=== PATIENT | female | born 1950 | race Caucasian/White ===

== ENCOUNTER → 2018-01-14 | Outpatient (CLI) | payer OTHER ==
[~2018-01-14] MED LIST: ACET325 PO; ACET500 PO; ALBU.083IS IH; ALBU2.5V5 INH; ALBU8HFA2 INH; ALBU90OI INH; ALBU90OI6; ALBU90OI61 INH; AMLO5 PO; ASPI81CH PO; ASPI81EC; ASPI81EC PO; AZIT250 PO; AZIT500 PO; BREWERS YEAST; CALCIUM; CALMAGZIN PO; CELE200 PO; CHOL10002 PO; CIPR500 PO; Cipro250 MG PO; DEEP SEA44 ML; DILT120 PO; DIPH12.5EL PO; DOCU100 PO; DULO30 PO; EPIN.3I IM; FAMO20 PO; FEXO180 PO; FLAX; FLAXSEED1000 MG PO; FLUSAL2505 IH; FLUT1DIS5 INH; FURO40 PO; Flagyl500 MG PO; GUAI600T33 PO; HYDACE5 PO; HYDR1TAB94 PO; Hair, Skin & N1 EACH PO; IBUP600 PO; IBUP800 PO; IRON150C PO; K-TAB ER20 MEQ PO; LEVA.63IS IH; LEVO750 PO; LISHYD1012 PO; LISHYD2025 PO; LISI5 PO; Lopressor 25 mg25 MG PO; Lyrica50 MG PO; METAMUCIL POWD174 GM PO; METO25 PO; METO50 PO; METR500 PO; MOMENI; MONT10T PO; MULVITB PO; MULVITMINF PO; Metamucil Smooth1 EA PO; NAPR500 PO; NIAC250ER PO; NIAC500 PO; Norco 5-325 Ta1 EACH PO; ONDA4ODT MM; POLY500 PO; POTA10T PO; PRED10 PO; PRED20 PO; PREG50 PO; PRESERVISION A1 EACH PO; PROBIOTIC COLON PO; PROM25 PO; RED YEAST RICE; RED YEAST RICE PO; SENN187 PO; SODCHL.65S; SUPER B-COMPL400 MCG PO; TRAM50 PO; TRAN4; Ultram50 MG PO; VIT1CAPS12 PO; Valtrex1000 MG PO; Ventolin5 MG/1 ML INH; Voltaren100 GM TOP; YEAST PO
[2018-01-14 11:47] LABS: Free Thyroxine 0.98 ng/dL (0.70-1.60); Thyroid Stimulating Hormone 2.81 uIU/mL (0.360-4.800); Triiodothyronine, Free 2.86 pg/mL (2.18-3.98)
== END ==
LOC: LAB 10:51
PROVIDERS: Internal Medicine
DX: M79.7 Fibromyalgia (principal); R63.5 Abnormal weight gain; E66.9 Obesity, unspecified; I10 Essential (primary) hypertension
CPT/HCPCS: 84439; 84443; 84481

== ENCOUNTER 2018-02-10 23:43 | Inpatient (IN) | payer OTHER ==
[~2018-02-10] VITALS: Ht 10.2 cm; Wt 101.5 kg
[~2018-02-10 23:43] MED LIST changes: -ACET325 PO; -ALBU90OI INH; -AZIT500 PO; -DEEP SEA44 ML; -FLAXSEED1000 MG PO; -IBUP600 PO; -Lopressor 25 mg25 MG PO; -Lyrica50 MG PO; -METAMUCIL POWD174 GM PO; -MONT10T PO; -PRED10 PO; -PREG50 PO; -PRESERVISION A1 EACH PO; -Ventolin5 MG/1 ML INH; -Voltaren100 GM TOP
[2018-02-11 01:14] LABS: BASOPHILS ABSOLUTE AUTO 0.04 K/mm3 (0.00-0.23); BASOPHILS PERCENT AUTO 1 % (0-2); EOSINOPHILS ABSOLUTE AUTO 0.32 K/mm3 (0.00-0.68); EOSINOPHILS PERCENT AUTO 5 % (0-6); Hematocrit 39.2 % (33.0-51.0); Hemoglobin 12.7 g/dL (11.5-16.0); IMMATURE GRAN ABSOLUTE AUTO 0.01 K/mm3 (0.00-0.10); IMMATURE GRAN PERCENT AUTO 0 % (0-1); LYMPHOCYTES ABSOLUTE AUTO 1.17 K/mm3 (0.84-5.20); LYMPHOCYTES PERCENT AUTO 17 % (21-46); MONOCYTES ABSOLUTE AUTO 0.69 K/mm3 (0.16-1.47); MONOCYTES PERCENT AUTO 10 % (4-13); Mean Corpuscular HGB 30.6 pg (26.0-34.0); Mean Corpuscular HGB Conc 32.4 g/dL (31.5-36.5); Mean Corpuscular Volume 95 fL (80-100); Mean Platelet Volume 10.7 fL (9.1-12.4); NEUTROPHILS ABSOLUTE AUTO 4.78 K/mm3 (1.96-9.15); NEUTROPHILS PERCENT AUTO 68 % (41-73); Platelet Count 313 K/mm3 (150-400); RDW Coefficient Variation 12.2 % (11.7-14.2); RDW Standard Deviation 42.5 fL (35.1-46.3); Red Blood Cell Count 4.15 M/mm3 (3.80-5.20); White Blood Cell Count 7.01 K/mm3 (4.00-11.30)
[2018-02-11 01:25] LABS: Alanine Aminotransfer (ALT/SGP 24 U/L (12-78); Albumin, Blood 3.6 g/dL (3.4-5.0); Albumin/Globulin Ratio 0.8 (0.8-1.8); Alk Phos 126 U/L (50-136); Anion Gap 9 mmol/L (6-16); Aspartate Aminotrans (AST/SGOT 17 U/L (12-37); Bilirubin, Total 0.4 mg/dL (0.1-1.0); Blood Urea Nitrogen 17 mg/dL (8-24); Bun/Creatinine Ratio 21.5 (12.0-20.0); CO2, Blood 25 mmol/L (21-32); Calcium, Blood 9.3 mg/dL (8.5-10.1); Chloride, Blood 103 mmol/L (98-108); Creatinine, Blood 0.79 mg/dL (0.40-1.00); Globulin, Blood 4.8 g/dL (2.2-4.0); Glomerular Filtration Rate >60 (60-); Glucose, Blood 87 mg/dL (70-99); Potassium, Blood 4.3 mmol/L (3.5-5.5); Sodium, Blood 137 mmol/L (136-145); Total Protein, Blood 8.4 g/dL (6.4-8.2)
[2018-02-11 02:07] LABS: Troponin I <0.015 ng/mL (0.000-0.040)
[2018-02-11 03:11] LABS: PCO2 Arterial 34 mmHg (35-45); PO2 Arterial 62.3 mmHg (80-100); pH Blood Arterial 7.46 (7.35-7.45)
[2018-02-11] MEDS ORDERED: Lyrica50 MG PO (04:06)
[2018-02-11] MEDS ORDERED: IBUP600 PO (04:14)
[2018-02-11] MEDS ORDERED: PRESERVISION A1 EACH PO (04:19)
[2018-02-11] MEDS ORDERED: AMLO5 PO ×2 (04:20→20:04)
[2018-02-11] MEDS ORDERED: PREG50 PO (17:53)
[2018-02-12 05:43] LABS: BASOPHILS ABSOLUTE AUTO 0.01 K/mm3 (0.00-0.23); BASOPHILS PERCENT AUTO 0 % (0-2); EOSINOPHILS PERCENT AUTO 0 % (0-6); Hematocrit 35.2 % (33.0-51.0); Hemoglobin 11.7 g/dL (11.5-16.0); IMMATURE GRAN ABSOLUTE AUTO 0.05 K/mm3 (0.00-0.10); IMMATURE GRAN PERCENT AUTO 1 % (0-1); LYMPHOCYTES ABSOLUTE AUTO 0.83 K/mm3 (0.84-5.20); LYMPHOCYTES PERCENT AUTO 9 % (21-46); MONOCYTES ABSOLUTE AUTO 0.25 K/mm3 (0.16-1.47); MONOCYTES PERCENT AUTO 3 % (4-13); Mean Corpuscular HGB 30.3 pg (26.0-34.0); Mean Corpuscular HGB Conc 33.2 g/dL (31.5-36.5); Mean Corpuscular Volume 91 fL (80-100); Mean Platelet Volume 11.1 fL (9.1-12.4); NEUTROPHILS ABSOLUTE AUTO 7.67 K/mm3 (1.96-9.15); NEUTROPHILS PERCENT AUTO 87 % (41-73); Platelet Count 256 K/mm3 (150-400); RDW Coefficient Variation 11.9 % (11.7-14.2); RDW Standard Deviation 39.5 fL (35.1-46.3); Red Blood Cell Count 3.86 M/mm3 (3.80-5.20); White Blood Cell Count 8.81 K/mm3 (4.00-11.30)
[2018-02-12 06:33] LABS: Anion Gap 12 mmol/L (6-16); Blood Urea Nitrogen 22 mg/dL (8-24); Bun/Creatinine Ratio 31.7 (12.0-20.0); CO2, Blood 20 mmol/L (21-32); Chloride, Blood 107 mmol/L (98-108); Glomerular Filtration Rate >60 (60-); Glucose, Blood 175 mg/dL (70-99); Potassium, Blood 4.2 mmol/L (3.5-5.5); Sodium, Blood 139 mmol/L (136-145)
[2018-02-12] MEDS ORDERED: DULO30 PO (13:19)
[2018-02-12] MEDS ORDERED: PRED10 PO (13:20)
[2018-02-12] MEDS ORDERED: AZIT500 PO (13:21)
[2018-02-12] MEDS ORDERED: DEEP SEA44 ML (13:22)
[2018-03-23] MEDS ORDERED: AMLO5 PO (15:59)
[2018-03-23] MEDS ORDERED: Lopressor 25 mg25 MG PO (16:00)
[2018-03-23] MEDS ORDERED: FURO40 PO (16:27)
[2018-03-23] MEDS ORDERED: K-TAB ER20 MEQ PO (16:32)
[2018-03-23] MEDS ORDERED: FLUT1DIS5 INH (16:33)
[2018-03-23] MEDS ORDERED: TRAM50 PO (16:33)
[2018-03-23] MEDS ORDERED: Ventolin5 MG/1 ML INH (16:34)
[2018-03-23] MEDS ORDERED: ALBU90OI INH (16:35)
[2018-03-23] MEDS ORDERED: Voltaren100 GM TOP (16:36)
[2018-03-23] MEDS ORDERED: DIPH12.5EL PO (16:37)
[2018-03-23] MEDS ORDERED: ACET325 PO (16:38)
[2018-03-23] MEDS ORDERED: METAMUCIL POWD174 GM PO (16:39)
[2018-03-23] MEDS ORDERED: IBUP600 PO (16:47)
[2018-03-23] MEDS ORDERED: PREG50 PO (16:48)
[2018-03-23] MEDS ORDERED: MONT10T PO (16:48)
[2018-03-23] MEDS ORDERED: FLAXSEED1000 MG PO (16:49)
== END 2018-02-12 15:05 | disposition home or self-care (01) | DRG 189 ==
LOC: ER 23:43 → MEDS 23:44
PROVIDERS: Emergency Medicine; Family Medicine
DX: J96.01 Acute respiratory failure with hypoxia (principal); J44.1 Chronic obstructive pulmonary disease with (acute) exacerbation; Z95.2 Presence of prosthetic heart valve; G89.29 Other chronic pain; I10 Essential (primary) hypertension; I49.3 Ventricular premature depolarization; Z88.8 Allergy status to other drugs, medicaments and biological substances; Z88.5 Allergy status to narcotic agent; Z91.013 Allergy to seafood; Z91.018 Allergy to other foods; Z79.82 Long term (current) use of aspirin; Z79.899 Other long term (current) drug therapy; Z87.891 Personal history of nicotine dependence
CPT/HCPCS: 36415; 36600; 71046; 80048; 80053; 82803; 83690; 84484; 85025; 93005; 93010; 94640; 94760; 96372; 96374; 96376; 99285; G0378; J0456; J1650; J2930; J7050

== ENCOUNTER 2018-03-27 05:54 | Day surgery (SDC) | payer OTHER ==
[~2018-03-27] VITALS: Ht 160 cm; Wt 102.1 kg
[~2018-03-27 05:54] MED LIST changes: +ACET325 PO; +ALBU90OI INH; +AZIT500 PO; +DEEP SEA44 ML; +FLAXSEED1000 MG PO; +IBUP600 PO; +Lopressor 25 mg25 MG PO; +Lyrica50 MG PO; +METAMUCIL POWD174 GM PO; +MONT10T PO; +PRED10 PO; +PREG50 PO; +PRESERVISION A1 EACH PO; +Ventolin5 MG/1 ML INH; +Voltaren100 GM TOP
== END 2018-03-27 22:56 | disposition home or self-care (01) ==
LOC: ORSCMMR 05:54 → ORD 07:30 → ORSCMMR 07:30
PROVIDERS: Surgery
PROC: 0WUF0JZ Supplement Abdominal Wall with Synthetic Substitute, Open Approach (ICD-10-PCS; principal; 2018-03-27 07:30)
DX: K43.0 Incisional hernia with obstruction, without gangrene (principal); I10 Essential (primary) hypertension; J44.9 Chronic obstructive pulmonary disease, unspecified; G47.33 Obstructive sleep apnea (adult) (pediatric); E66.01 Morbid (severe) obesity due to excess calories; Z68.41 Body mass index [BMI] 40.0-44.9, adult; Z79.899 Other long term (current) drug therapy
CPT/HCPCS: C1781; J0690; J1100; J2250; J2370; J2405; J2710; J2765; J3010; J7120

== ENCOUNTER → 2019-05-14 | Outpatient (CLI) | payer OTHER ==
[2019-05-14 10:56] LABS: Blood, Urine 1+ (Neg); Glucose Qualitative, Urine Neg (Neg); Ketones, Urine Neg (Neg); Leukocyte Esterase, Urine Neg (Neg); Nitrite, Urine Pos (Neg); Protein, Urine 3+ (Neg); Specific Gravity, Urine 1.015 (1.003-1.022); Urobilinogen, Urine 3+ (Normal); pH, Urine 6.5 (5.0-8.0)
[2019-05-14 11:17] LABS: Bilirubin, Urine 3+ (Neg); Color, Urine Amber (P-Yellow)
[2019-05-14 11:19] LABS: Amorphous Heavy (0-Heavy); Appearance, Urine Cloudy (Clear); Bacteria Rare /hpf; Red Blood Cells, Urine 0-2 /hpf (0-2); Squamous Epithelial Cells Mod /hpf (Few); White Blood Cells, Urine 0-2 /hpf (0-5)
== END | disposition home or self-care (01) ==
LOC: LAB SHORT 09:49 → LAB 09:49
DX: R30.0 Dysuria (principal)
CPT/HCPCS: 81001; 87086

== ENCOUNTER 2019-11-03 20:30 | Emergency (ER) | payer OTHER ==
[~2019-11-03] VITALS: Ht 160 cm; Wt 85.3 kg
[2019-11-03 21:30] LABS: BASOPHILS ABSOLUTE AUTO 0.05 K/mm3 (0.00-0.23); BASOPHILS PERCENT AUTO 1 % (0-2); EOSINOPHILS ABSOLUTE AUTO 0.01 K/mm3 (0.00-0.68); EOSINOPHILS PERCENT AUTO 0 % (0-6); Hematocrit 46.7 % (33.0-51.0); Hemoglobin 15.7 g/dL (11.5-16.0); IMMATURE GRAN ABSOLUTE AUTO 0.03 K/mm3 (0.00-0.10); IMMATURE GRAN PERCENT AUTO 0 % (0-1); LYMPHOCYTES ABSOLUTE AUTO 1.24 K/mm3 (0.84-5.20); LYMPHOCYTES PERCENT AUTO 12 % (21-46); MONOCYTES PERCENT AUTO 3 % (4-13); Mean Corpuscular HGB 31.7 pg (26.0-34.0); Mean Corpuscular HGB Conc 33.6 g/dL (31.5-36.5); Mean Corpuscular Volume 94 fL (80-100); Mean Platelet Volume 10.7 fL (9.1-12.4); NEUTROPHILS ABSOLUTE AUTO 9.12 K/mm3 (1.96-9.15); NEUTROPHILS PERCENT AUTO 85 % (41-73); Platelet Count 298 K/mm3 (150-400); RDW Coefficient Variation 12.8 % (11.7-14.2); RDW Standard Deviation 44.5 fL (35.1-46.3); Red Blood Cell Count 4.96 M/mm3 (3.80-5.20); White Blood Cell Count 10.75 K/mm3 (4.00-11.30)
[2019-11-03 22:36] LABS: Alanine Aminotransfer (ALT/SGP 20 U/L (12-78); Albumin, Blood 3.4 g/dL (3.4-5.0); Albumin/Globulin Ratio 0.9 (0.8-1.8); Alk Phos 112 U/L (50-136); Anion Gap 8 mmol/L (6-16); Aspartate Aminotrans (AST/SGOT 14 U/L (12-37); Bilirubin, Total 0.5 mg/dL (0.1-1.0); Blood Urea Nitrogen 20 mg/dL (8-24); Bun/Creatinine Ratio 29.6 (12.0-20.0); CO2, Blood 28 mmol/L (21-32); Calcium, Blood 8.9 mg/dL (8.5-10.1); Chloride, Blood 104 mmol/L (98-108); Creatinine, Blood 0.68 mg/dL (0.40-1.00); Globulin, Blood 3.7 g/dL (2.2-4.0); Glomerular Filtration Rate >60 (60-); Glucose, Blood 124 mg/dL (70-99); Sodium, Blood 140 mmol/L (136-145); Total Protein, Blood 7.1 g/dL (6.4-8.2)
[2019-11-03 23:04] LABS: Bilirubin, Urine Neg (Neg); Blood, Urine Neg (Neg); Glucose Qualitative, Urine Neg (Neg); Leukocyte Esterase, Urine 1+ (Neg); Nitrite, Urine Neg (Neg); Protein, Urine 1+ (Neg); Urobilinogen, Urine NORM (Normal)
[2019-11-03 23:15] LABS: Ketones, Urine 2+ (Neg)
[2019-11-03 23:18] LABS: Appearance, Urine Hazy (Clear); Color, Urine Yellow (P-Yellow)
[2019-11-03 23:20] LABS: Bacteria Mod /hpf; Mucus Mod (0-Heavy); Red Blood Cells, Urine Not Seen /hpf (0-2); Squamous Epithelial Cells Few /hpf (Few)
[2019-11-03] MEDS ORDERED: ONDA4ODT SL (23:45)
== END 2019-11-04 00:12 | disposition home or self-care (01) ==
LOC: ER 20:30
PROVIDERS: Emergency Medicine
DX: R10.32 Left lower quadrant pain (principal); R51 Headache; R11.2 Nausea with vomiting, unspecified; R19.7 Diarrhea, unspecified; J44.9 Chronic obstructive pulmonary disease, unspecified; I10 Essential (primary) hypertension; Z91.013 Allergy to seafood; Z88.8 Allergy status to other drugs, medicaments and biological substances; Z88.5 Allergy status to narcotic agent; Z91.09 Other allergy status, other than to drugs and biological substances; Z91.048 Other nonmedicinal substance allergy status; Z91.018 Allergy to other foods; Z79.899 Other long term (current) drug therapy; Z79.51 Long term (current) use of inhaled steroids; Z87.891 Personal history of nicotine dependence
CPT/HCPCS: 36415; 80053; 81001; 83690; 85025; 87086; 96361; 96374; 99284-25; A9270-GY; J2405; J7120

== ENCOUNTER → 2021-11-14 | Outpatient (CLI) | payer OTHER ==
[~2021-11-14] MED LIST changes: +Aspir 8181 MG PO; +B-100 COMPLEX100 MG PO; +CALCIUM 500 MG1 EAC2 PO; +MELATONIN5 M1 PO; +ONDA4ODT SL
[2021-11-14 17:12] LABS: Source, Urine Clean Catch
[2021-11-14 19:49] LABS: Appearance, Urine Clear (Clear); Bilirubin, Urine Neg (Neg); Blood, Urine Neg (Neg); Color, Urine Yellow (P-Yellow); Glucose Qualitative, Urine Neg (Neg); Ketones, Urine Neg (Neg); Leukocyte Esterase, Urine Neg (Neg); Nitrite, Urine Neg (Neg); Protein, Urine Neg (Neg); Specific Gravity, Urine 1.015 (1.003-1.022); Urobilinogen, Urine NORM (Normal)
[2021-11-14 20:55] LABS: Creatinine, Urine Random 67.9 mg/dL (27.00-270.00); Protein, Urine Random 6.7 mg/dL (0.0-11.9); Protein/Creat Ratio, Ur Random 0.1
== END | disposition home or self-care (01) ==
LOC: LAB SHORT 17:09 → LAB 17:09
PROVIDERS: Internal Medicine Nephrology
DX: I10 Essential (primary) hypertension (principal)
CPT/HCPCS: 81003; 82570; 84156

== ENCOUNTER 2021-11-20 10:35 | Day surgery (SDC) | payer OTHER ==
[~2021-11-20] VITALS: Ht 162.6 cm; Wt 92.0 kg
--- NOTE | 2021-11-20 11:24 | NUR ---
PT STATES BEING ABLE TO TOLERATE PROPOFOL SEDATION WITHOUT ANY ADVERSE REACTIONS OR SIDE EFFECTS. PT CLAIMS SHE HAS HAD PROBLEMS WITH GENERAL ANESTHESIA WAKING UP, STATES SHE IS EASILY OVER SEDATED AND "WAS ALMOST KILLED BY AN ANESTHESIOLOGIST BY IT".
--- NOTE | 2021-11-20 13:02 | NUR ---
11/20/21 1302 Carol Bermudez MONITORS PLACED. SEE DR. PERSAUD ANESTHESIA RECORD.
--- NOTE | 2021-11-20 13:48 | NUR ---
Patient up to Ambulate independently. Gait steady. Discharge instructions reviewed with patient. Patient verbalizes understanding. Copy given to patient to take home. Discharged via wheelchair to private car for ride home.
== END 2021-11-20 13:45 | disposition home or self-care (01) ==
LOC: ORSCMMR 10:35
PROVIDERS: Surgery
PROC: 0DBH8ZX Excision of Cecum, Via Natural or Artificial Opening Endoscopic, Diagnostic (ICD-10-PCS; principal; 2021-11-20 12:00)
DX: Z12.11 Encounter for screening for malignant neoplasm of colon (principal); D12.0 Benign neoplasm of cecum; Z86.010 Personal history of colon polyps; J44.9 Chronic obstructive pulmonary disease, unspecified; J45.909 Unspecified asthma, uncomplicated; M79.7 Fibromyalgia; E78.5 Hyperlipidemia, unspecified; I10 Essential (primary) hypertension; G47.33 Obstructive sleep apnea (adult) (pediatric); E66.01 Morbid (severe) obesity due to excess calories; Z68.34 Body mass index [BMI] 34.0-34.9, adult; Z79.82 Long term (current) use of aspirin; Z79.899 Other long term (current) drug therapy
CPT/HCPCS: 88305; J2250; J2370; J2704; J7120

== ENCOUNTER → 2022-08-08 | Outpatient (CLI) | payer OTHER | END | disposition home or self-care (01) | LOC: LAB 11:36 → LAB SHORT 11:36 | DX: J44.1 Chronic obstructive pulmonary disease with (acute) exacerbation (principal) | CPT/HCPCS: 87070; 87205 ==

== ENCOUNTER 2023-02-06 06:22 | Day surgery (SDC) | payer OTHER ==
[~2023-02-06] VITALS: Ht 162.6 cm; Wt 100.0 kg
--- NOTE | 2023-02-06 11:38 | NUR ---
10cc air removed from R wrist TR Band. -bleeding or swelling.
--- NOTE | 2023-02-06 12:02 | NUR ---
PT TO RESTROOM VIA WC AND BACK WITHOUT DIFF. PT R RADIAL TR BAND REMAINS STABLE. NO BLEEDING OR HEMATOMA NOTED. VSS.
--- NOTE | 2023-02-06 12:05 | NUR ---
PT DRESSING SELF WITHOUT DIFF. PT VERBALIZES UNDERSTANDING WRITTEN AND VERBAL INSTRUCTIONS.PT TR BAND REMOVED. DOT DRESSING W/ SPLINT IN PLACE. NO BLEEDING NOTED. VSS. PT IV DC'D. CATH INTACT. PRESSURE DSG APPLIED.
--- NOTE | 2023-02-06 12:35 | NUR ---
PT DC TO HOME VIA FRIEND BY WC. DENIES QUESTIONS OR NEEDS.
== END 2023-02-06 12:35 | disposition home or self-care (01) ==
LOC: MHTC 06:22
DX: I25.10 Atherosclerotic heart disease of native coronary artery without angina pectoris (principal); I35.0 Nonrheumatic aortic (valve) stenosis; J44.9 Chronic obstructive pulmonary disease, unspecified; Z99.81 Dependence on supplemental oxygen; I50.30 Unspecified diastolic (congestive) heart failure; I11.0 Hypertensive heart disease with heart failure; E66.01 Morbid (severe) obesity due to excess calories; Z91.041 Radiographic dye allergy status; Z68.37 Body mass index [BMI] 37.0-37.9, adult; Z91.013 Allergy to seafood
CPT/HCPCS: 76937; 93454; 99152; 99153; A9270; C1769; C1887; C1894; J1200; J1644; J1720; J2250; J3010; J7030; J7050; Q9967